=== PATIENT | male | born 1935 | race Caucasian/White ===

== ENCOUNTER 2021-03-15 06:53 | Inpatient (IN) ==
[2021-03-09 11:40] LABS: Basophils # 0.1 10*3/uL (0.0-0.2); Eosinophils # 0.1 10*3/uL (0.0-0.87); Hematocrit 39.9 VOL% (42.0-52.0); Hemoglobin 14.1 GM/DL (14.0-18.0); Immature Granulocytes % 0.5 %; Immature Granulocytes Absolute 0.03 #; Lymphocytes # 2.2 10*3/uL (1.4-4.0); Lymphocytes % 38.4 % (21.2-54.2); Mean Corpuscular HGB Conc 35.3 GM/DL (32-36); Mean Corpuscular Volume 89.5 FL (87-102); Mean Platelet Volume 11.2 FL (9.6-12.0); Monocytes % 8.5 % (1.7-12.7); Neutrophils % 48.6 % (38.7-73.9); Platelet Count 226 T/CUMM (130-400); Red Blood Count 4.46 MC/CUMM (3.8-5.5); Red Cell Distribution Width 13.8 % (9.3-17.3); White Blood Count 5.6 T/CUMM (4-12)
[2021-03-09 11:49] LABS: PT Patient Result 11.2 SECS (10.5-12.0)
[2021-03-09 11:57] LABS: Albumin 3.5 G/DL (3.4-5.0); Bilirubin,Total 0.9 MG/DL (0.2-1.0); Calcium 9.4 MG/DL (8.5-10.1); Osmolality,Calculated 278.5 MOS/KG (273-304); Potassium 4.3 MMOL/L (3.5-5.1); Total Protein 6.5 G/DL (6.4-8.2)
[~2021-03-15 06:53] MED LIST: LACTATED RINGERS 1,000 ML IV SCH; VANCOMYCIN INJ 500 MG in SODIUM CHLORIDE 0.9% 100 ML IV ONE
[2021-03-15] MEDS ORDERED: HEPARIN 5,000 UNIT/1 ML VIAL ONE (07:14)
[2021-03-15] MEDS ORDERED: LIDOCAINE 1% 20 ML VIAL ONE (07:14)
[2021-03-15] MEDS ORDERED: fentaNYL 100 MCG/2 ML VIAL ONE (07:22)
[2021-03-15] MEDS ORDERED: HEPARIN/NACL 0.9% 2 UNITS/ML 1,000 UNIT/500 ML BAG IV ONE (07:24)
[2021-03-15] MEDS ORDERED: NITROGLYCERIN DRIP 50 MG/250 ML BOTTLE IV ONE (07:24)
[2021-03-15] MEDS ORDERED: PHENYLEPHRINE DRIP 20 MG/250 ML PREMIX IV ONE (07:25)
[2021-03-15] MEDS ORDERED: PHENYLEPHRINE 1 MG/10 ML SYRINGE IV ONE (07:25)
[2021-03-15] MEDS ORDERED: PROTAMINE SULFATE 50 MG/5 ML VIAL IV ONE (07:25)
[2021-03-15] MEDS ORDERED: HEPARIN 10,000 UNIT/10 ML VIAL ONE (07:25)
[2021-03-15] MEDS ORDERED: ePHEDrine 50 MG/ML VIAL ONE (07:38)
[2021-03-15] MEDS ORDERED: LIDOCAINE 2% 5 ML VIAL ONE ×2 (07:47→07:48)
[2021-03-15] MEDS ORDERED: ROCURONIUM 50 MG/5 ML VIAL IV ONE (07:48)
[2021-03-15] MEDS ORDERED: propofoL 200 MG/20 ML VIAL IV ONE (07:48)
[2021-03-15] MEDS ORDERED: ESMOLOL 100 MG/10 ML VIAL IV ONE (09:07)
[2021-03-15] MEDS ORDERED: HYDROmorphone 2 MG/1 ML VIAL IV PRN (09:47)
[2021-03-15] MEDS ORDERED: DEXTROSE 50% 25 GM/50 ML VIAL IV PRN (09:47)
[2021-03-15] MEDS ORDERED: NALOXONE 0.4 MG/ML VIAL IV PRN (09:47)
[2021-03-15] MEDS ORDERED: GLUCAGON 1 MG VIAL IM PRN (09:47)
[2021-03-15] MEDS ORDERED: oxyCODONE/ACETAMINOPHEN 5-325 MG TABLET PO PRN ×2 (09:47)
[2021-03-15] MEDS ORDERED: PROMETHAZINE 25 MG/1 ML VIAL IM PRN (09:47)
[2021-03-15] MEDS ORDERED: ONDANSETRON 4 MG/2 ML VIAL IV PRN (09:47)
[2021-03-15] MEDS ORDERED: ONDANSETRON 4 MG/2 ML VIAL ONE (09:50)
[2021-03-15] MEDS ORDERED: SEVOFLURANE 1 UNIT/15 MINUTE INH ONE (09:56)
[2021-03-15] MEDS ORDERED: PHENYLEPHRINE DRIP 40 MG/250 ML PREMIX IV SCH (10:00)
[2021-03-15] MEDS: NITROPRUSSIDE 100 MG in DEXTROSE 5% 250 ML IV SCH (10:45)
[2021-03-15] MEDS: LACTATED RINGERS 1,000 ML IV SCH (10:45)
[2021-03-15] MEDS: HYDROmorphone 2 MG/1 ML VIAL IV PRN ×2 (11:27→14:20)
[2021-03-15] MEDS ORDERED: PHENYLEPHRINE DRIP 40 MG/250 ML PREMIX IV PRN (14:00)
[2021-03-15] MEDS ORDERED: KETOROLAC 15 MG/1 ML VIAL IV PRN (17:19)
[2021-03-15] MEDS: DOCUSATE SODIUM 100 MG CAPSULE PO SCH (21:05)
[2021-03-16] MEDS: LACTATED RINGERS 1,000 ML IV SCH ×2 (00:01→08:07)
[2021-03-16] MEDS ORDERED: SEVOFLURANE 1 UNIT/15 MINUTE INH ONE ×4 (08:04→08:05)
[2021-03-16] MEDS ORDERED: PHENYLEPHRINE 1 MG/10 ML SYRINGE IV ONE (08:05)
[2021-03-16] MEDS ORDERED: PROTAMINE SULFATE 50 MG/5 ML VIAL IV ONE (08:05)
[2021-03-16] MEDS ORDERED: PHENYLEPHRINE DRIP 20 MG/250 ML PREMIX IV ONE (08:07)
[2021-03-16] MEDS ORDERED: DEXTROSE 50% 25 GM/50 ML VIAL IV PRN (08:20)
[2021-03-16] MEDS ORDERED: GLUCAGON 1 MG VIAL IM PRN (08:20)
[2021-03-16] MEDS ORDERED: ASPIRIN EC 81 MG TABLET PO SCH (09:00)
[2021-03-16] MEDS: LEVOTHYROXINE 125 MCG TABLET PO SCH (09:22)
[2021-03-16] MEDS: POLYETHYLENE GLYCOL POWDER 17 GM PACK PO SCH (09:22)
[2021-03-16] MEDS: ASPIRIN EC 81 MG TABLET PO SCH (09:22)
[2021-03-16] MEDS: NITROPRUSSIDE 100 MG in DEXTROSE 5% 250 ML IV SCH (09:23)
[2021-03-16] MEDS ORDERED: PHENOL 1.4% THROAT SPRAY 177 ML BOTTLE PO PRN (12:50)
[2021-03-16] MEDS ORDERED: DEXAMETHASONE INJ 20 MG in SODIUM CHLORIDE 0.9% 50 ML IV ONE (14:00)
[2021-03-16] MEDS: INSULIN LISPRO 100 UNIT/ML SUBCUT SCH (18:35)
[2021-03-16] MEDS ORDERED: METOPROLOL TARTRATE 5 MG/5 ML VIAL IV PRN (18:52)
[2021-03-16] MEDS: DOCUSATE SODIUM 100 MG CAPSULE PO SCH (20:52)
[2021-03-17] MEDS: INSULIN LISPRO 100 UNIT/ML SUBCUT SCH ×5 (00:32→17:59)
[2021-03-17] MEDS: METOPROLOL SUCCINATE XL 25 MG TABLET PO SCH (09:16)
[2021-03-17] MEDS: POLYETHYLENE GLYCOL POWDER 17 GM PACK PO SCH (09:16)
[2021-03-17] MEDS: ASPIRIN EC 81 MG TABLET PO SCH (09:16)
[2021-03-17] MEDS: LEVOTHYROXINE 125 MCG TABLET PO SCH (09:16)
[2021-03-17] MEDS: NITROPRUSSIDE 100 MG in DEXTROSE 5% 250 ML IV SCH (10:06)
[2021-03-17] MEDS ORDERED: chlorproMAZINE 25 MG TABLET PO PRN (18:01)
[2021-03-17] MEDS: DOCUSATE SODIUM 100 MG CAPSULE PO SCH (20:40)
[2021-03-18] MEDS: INSULIN LISPRO 100 UNIT/ML SUBCUT SCH ×3 (00:20→07:51)
[2021-03-18] MEDS ORDERED: INSULIN GLARGINE 100 UNIT/ML SUBCUT SCH (09:00)
[2021-03-18] MEDS: ASPIRIN EC 81 MG TABLET PO SCH (09:05)
[2021-03-18] MEDS: LEVOTHYROXINE 125 MCG TABLET PO SCH (09:05)
[2021-03-18] MEDS: METOPROLOL SUCCINATE XL 25 MG TABLET PO SCH (09:05)
[2021-03-18] MEDS: POLYETHYLENE GLYCOL POWDER 17 GM PACK PO SCH (09:08)
[2021-03-18 11:30] VITALS: BP 139/54
== END 2021-03-18 11:59 | DRG 38 ==
LOC: N.OR 06:53 → N.SDSINP 06:57 → EDSTATUS 08:15 → N.SDSINP 09:47 → N.ICU 10:35 → N.3E 03-17 12:42
PROVIDERS: ADMIT Surgery; ATTEND Surgery

== ENCOUNTER 2021-08-07 16:50 | Observation (INO) ==
[2021-08-07 18:03] LABS: Basophils # 0.1 10*3/uL (0.0-0.2); Basophils % 1.8 % (0.0-0.8); Eosinophils # 0.1 10*3/uL (0.0-0.87); Eosinophils % 2.2 % (0.00-10.9); Hematocrit 39.6 VOL% (42.0-52.0); Hemoglobin 13.6 GM/DL (14.0-18.0); Immature Granulocytes % 0.4 %; Immature Granulocytes Absolute 0.02 #; Lymphocytes # 2.2 10*3/uL (1.4-4.0); Lymphocytes % 39.3 % (21.2-54.2); Mean Corpuscular HGB Conc 34.3 GM/DL (32-36); Mean Platelet Volume 10.4 FL (9.6-12.0); Monocytes % 9.4 % (1.7-12.7); Neutrophils % 46.9 % (38.7-73.9); Platelet Count 237 T/CUMM (130-400); Red Cell Distribution Width 14.6 % (9.3-17.3); White Blood Count 5.5 T/CUMM (4-12)
[2021-08-07] MEDS ORDERED: ONDANSETRON 4 MG/2 ML VIAL IV STA (18:26)
[2021-08-07] MEDS ORDERED: ASPIRIN 325 MG TABLET PO STA (18:26)
[2021-08-07 18:35] LABS: Albumin 3.7 G/DL (3.4-5.0); Bilirubin,Total 0.7 MG/DL (0.20-1.00); Calcium 9.1 MG/DL (8.5-10.1); Osmolality,Calculated 277.8 MOS/KG (273-304); Potassium 4.2 MMOL/L (3.5-5.1); Total Protein 7.2 G/DL (6.4-8.2)
[2021-08-07 18:40] LABS: PT Patient Result 11.6 SECS (10.5-12.0); Partial Thromboplastin Time 25.1 SECS (23.8-32.1)
[2021-08-07 18:42] LABS: High Sensitive Troponin I* 310.5 ng/L (0-78)
[2021-08-07] MEDS ORDERED: GLUCAGON 1 MG VIAL IM PRN ×2 (19:14)
[2021-08-07] MEDS ORDERED: ACETAMINOPHEN 325 MG TABLET PO PRN (19:14)
[2021-08-07] MEDS ORDERED: DEXTROSE 50% 25 GM/50 ML VIAL IV PRN ×2 (19:14)
[2021-08-07 19:16] LABS: Bilirubin,Urine Negative (Negative); Blood, Urine Negative (Negative); Glucose,Urine (UA) >=500 mg/dL (Negative); Hyaline Casts,Urine 1 /LPF (0-3); Ketones,Urine Negative (Negative); Mucus,Urine Occasional /LPF (Occasional); Nitrite,Urine Negative (Negative); Protein,Urine Negative; RBC,Urine 1 /HPF (0-4); Urine Appearance CLEAR (Clear); Urine Color Yellow (Yellow); Urine Specific Gravity 1.015 (1.001-1.035); Urine Urobilinogen < 2.0 EU/DL (0.2-1.0)
[2021-08-07 19:22] LABS: Barbiturates Screen,Urine Negative (Negative); Benzodiazepines Screen,Urine Negative (Negative); Cannabinoid Screen,Urine Negative (Negative); Opiate Screen,Urine Negative (Negative); Phencyclidine Screen,Urine Negative (Negative)
[2021-08-07] MEDS ORDERED: ENOXAPARIN 40 MG/0.4 ML SYRINGE SUBCUT SCH (19:30)
[2021-08-07] MEDS: INSULIN LISPRO 100 UNIT/ML SUBCUT SCH ×2 (21:45)
[2021-08-07 21:56] LABS: INR 1.1; PT Patient Result 11.8 SECS (10.5-12.0); Partial Thromboplastin Time 25.6 SECS (23.8-32.1)
[2021-08-08 06:28] LABS: Basophils # 0.1 10*3/uL (0.0-0.2); Basophils % 1.6 % (0.0-0.8); Eosinophils # 0.1 10*3/uL (0.0-0.87); Hematocrit 38.2 VOL% (42.0-52.0); Hemoglobin 13.2 GM/DL (14.0-18.0); Immature Granulocytes % 0.5 %; Immature Granulocytes Absolute 0.03 #; Lymphocytes # 1.4 10*3/uL (1.4-4.0); Lymphocytes % 24.7 % (21.2-54.2); Mean Corpuscular HGB Conc 34.6 GM/DL (32-36); Mean Corpuscular Volume 90.7 FL (87-102); Mean Platelet Volume 10.8 FL (9.6-12.0); Neutrophils % 62.2 % (38.7-73.9); Platelet Count 209 T/CUMM (130-400); Red Blood Count 4.21 MC/CUMM (3.8-5.5); Red Cell Distribution Width 14.5 % (9.3-17.3); White Blood Count 5.6 T/CUMM (4-12)
[2021-08-08] MEDS ORDERED: LEVOTHYROXINE 125 MCG TABLET PO SCH (06:30)
[2021-08-08 06:59] LABS: Thyroid Stimulating Hormone 4.78 uIU/ml (0.358-3.74)
[2021-08-08 07:48] LABS: Free T4 (Free Thyroxine) 0.93 NG/DL (0.76-1.46)
[2021-08-08 08:45] LABS: Folate > 24.00 NG/ML (5.38-24.0); Vitamin B12 522 PG/ML (211-911)
[2021-08-08] MEDS ORDERED: INSULIN GLARGINE 100 UNIT/ML SUBCUT SCH (09:00)
[2021-08-08] MEDS: INSULIN LISPRO 100 UNIT/ML SUBCUT SCH ×5 (09:43→21:19)
[2021-08-08] MEDS: PANTOPRAZOLE 40 MG TABLET PO SCH (09:45)
[2021-08-08] MEDS: ASPIRIN EC 81 MG TABLET PO SCH (09:45)
[2021-08-08] MEDS: CLOPIDOGREL 75 MG TABLET PO SCH (09:45)
[2021-08-08] MEDS ORDERED: GLUCAGON 1 MG VIAL IM PRN (11:24)
[2021-08-08] MEDS ORDERED: DEXTROSE 50% 25 GM/50 ML VIAL IV PRN (11:24)
[2021-08-08] MEDS ORDERED: POLYETHYLENE GLYCOL POWDER 17 GM PACK PO ONE (14:50)
[2021-08-08] MEDS ORDERED: EZETIMIBE 10 MG TABLET PO SCH (21:00)
[2021-08-09 05:10] LABS: Basophils # 0.1 10*3/uL (0.0-0.2); Basophils % 1.6 % (0.0-0.8); Eosinophils # 0.1 10*3/uL (0.0-0.87); Eosinophils % 2.5 % (0.00-10.9); Hematocrit 36.9 VOL% (42.0-52.0); Hemoglobin 12.4 GM/DL (14.0-18.0); Immature Granulocytes % 0.4 %; Immature Granulocytes Absolute 0.02 #; Lymphocytes % 35.9 % (21.2-54.2); Mean Corpuscular HGB Conc 33.6 GM/DL (32-36); Mean Corpuscular Volume 91.1 FL (87-102); Mean Platelet Volume 10.7 FL (9.6-12.0); Monocytes % 11.1 % (1.7-12.7); Neutrophils % 48.5 % (38.7-73.9); Platelet Count 202 T/CUMM (130-400); Red Blood Count 4.05 MC/CUMM (3.8-5.5); Red Cell Distribution Width 14.5 % (9.3-17.3); White Blood Count 5.6 T/CUMM (4-12)
[2021-08-09 05:32] LABS: Risk Ratio 2.72; VLDL Cholesterol 21.6 MG/DL
[2021-08-09 05:35] LABS: Calcium 9.1 MG/DL (8.5-10.1)
[2021-08-09 05:36] LABS: Potassium 3.9 MMOL/L (3.5-5.1)
[2021-08-09] MEDS ORDERED: LEVOTHYROXINE 112 MCG TABLET PO SCH (06:30)
[2021-08-09] MEDS: PANTOPRAZOLE 40 MG TABLET PO SCH (08:51)
[2021-08-09] MEDS: CLOPIDOGREL 75 MG TABLET PO SCH (08:51)
[2021-08-09] MEDS: INSULIN LISPRO 100 UNIT/ML SUBCUT SCH ×3 (08:52→15:58)
[2021-08-09] MEDS: ASPIRIN EC 81 MG TABLET PO SCH (08:52)
[2021-08-09] MEDS ORDERED: INSULIN GLARGINE 100 UNIT/ML SUBCUT SCH ×3 (09:00→21:00)
[2021-08-09] MEDS ORDERED: POLYETHYLENE GLYCOL POWDER 17 GM PACK PO SCH (09:00)
[2021-08-09 15:42] VITALS: BP 106/82
== END 2021-08-09 18:17 | disposition home health service (06) ==
LOC: N.EDINP 16:50 → N.ED 16:50 → N.EDINP 22:20 → N.TELES 22:30
PROVIDERS: ADMIT Internal Medicine; ATTEND Internal Medicine

== ENCOUNTER 2021-08-24 16:11 | Observation (INO) ==
[2021-08-24] MEDS ORDERED: ONDANSETRON 4 MG/2 ML VIAL IV STA (16:48)
[2021-08-24] MEDS ORDERED: SODIUM CHLORIDE 0.9% 500 ML IV ONE (16:48)
[2021-08-24] MEDS ORDERED: fentaNYL 100 MCG/2 ML VIAL IV STA (16:49)
[2021-08-24 17:13] LABS: Basophils # 0.1 10*3/uL (0.0-0.2); Basophils % 0.7 % (0.0-0.8); Eosinophils # 0.1 10*3/uL (0.0-0.87); Eosinophils % 1.4 % (0.00-10.9); Hematocrit 39.9 VOL% (42.0-52.0); Hemoglobin 13.6 GM/DL (14.0-18.0); Immature Granulocytes % 0.8 %; Immature Granulocytes Absolute 0.08 #; Lymphocytes # 2.2 10*3/uL (1.4-4.0); Lymphocytes % 22.1 % (21.2-54.2); Mean Corpuscular HGB Conc 34.1 GM/DL (32-36); Mean Corpuscular Volume 89.9 FL (87-102); Mean Platelet Volume 10.6 FL (9.6-12.0); Monocytes % 7.3 % (1.7-12.7); Neutrophils % 67.7 % (38.7-73.9); Platelet Count 243 T/CUMM (130-400); Red Blood Count 4.44 MC/CUMM (3.8-5.5); Red Cell Distribution Width 14.2 % (9.3-17.3); White Blood Count 9.8 T/CUMM (4-12)
[2021-08-24 18:16] LABS: Sedimentation Rate-Westergren 29 MM/HR (0-20)
[2021-08-24 18:18] LABS: Calcium 9.6 MG/DL (8.5-10.1); Osmolality,Calculated 274.2 MOS/KG (273-304); Potassium 4.1 MMOL/L (3.5-5.1)
[2021-08-24] MEDS ORDERED: METOPROLOL TARTRATE 5 MG/5 ML VIAL IV STA (19:15)
[2021-08-24] MEDS ORDERED: DILTIAZEM 50 MG/10 ML VIAL IV STA (21:08)
[2021-08-24] MEDS ORDERED: DILTIAZEM 25 MG/5 ML VIAL IV ONE (21:19)
[2021-08-24] MEDS: DOXYCYCLINE HYCLATE INJ 100 MG in SODIUM CHLORIDE 0.9% 100 ML IV SCH (21:43)
[2021-08-24] MEDS ORDERED: GLUCAGON 1 MG VIAL IM PRN (21:48)
[2021-08-24] MEDS ORDERED: DEXTROSE 50% 25 GM/50 ML VIAL IV PRN (21:48)
[2021-08-24] MEDS ORDERED: ONDANSETRON 4 MG/2 ML VIAL IV PRN (21:55)
[2021-08-24] MEDS ORDERED: HYDROmorphone 2 MG/1 ML VIAL IV PRN (21:55)
[2021-08-24] MEDS ORDERED: ACETAMINOPHEN 325 MG TABLET PO PRN (21:55)
[2021-08-24] MEDS ORDERED: traMADol 50 MG TABLET PO PRN (22:05)
[2021-08-24] MEDS ORDERED: METOPROLOL TARTRATE 5 MG/5 ML VIAL IV PRN (22:51)
[2021-08-24] MEDS ORDERED: hydrALAZINE 20 MG/1 ML VIAL IV PRN (23:00)
[2021-08-25] MEDS: ALBUTEROL/IPRATROPIUM 3 ML NEB RESP TX SCH ×4 (03:00→20:24)
[2021-08-25 05:47] LABS: Basophils # 0.1 10*3/uL (0.0-0.2); Basophils % 0.9 % (0.0-0.8); Eosinophils # 0.1 10*3/uL (0.0-0.87); Eosinophils % 1.3 % (0.00-10.9); Hematocrit 35.2 VOL% (42.0-52.0); Hemoglobin 11.9 GM/DL (14.0-18.0); Immature Granulocytes % 0.5 %; Immature Granulocytes Absolute 0.04 #; Lymphocytes # 2.3 10*3/uL (1.4-4.0); Lymphocytes % 29.4 % (21.2-54.2); Mean Corpuscular HGB Conc 33.8 GM/DL (32-36); Mean Corpuscular Volume 90.7 FL (87-102); Mean Platelet Volume 11.1 FL (9.6-12.0); Monocytes % 9.7 % (1.7-12.7); Neutrophils % 58.2 % (38.7-73.9); Platelet Count 197 T/CUMM (130-400); Red Blood Count 3.88 MC/CUMM (3.8-5.5); Red Cell Distribution Width 14.4 % (9.3-17.3)
[2021-08-25 06:11] LABS: Albumin 3.1 G/DL (3.4-5.0); Bilirubin,Total 1.4 MG/DL (0.20-1.00); Calcium 9.2 MG/DL (8.5-10.1); Osmolality,Calculated 276.2 MOS/KG (273-304); Potassium 4.8 MMOL/L (3.5-5.1); Total Protein 6.4 G/DL (6.4-8.2)
[2021-08-25 06:13] LABS: Atypical Lymphocytes Few
[2021-08-25] MEDS: ASPIRIN EC 81 MG TABLET PO SCH (09:20)
[2021-08-25] MEDS: LEVOTHYROXINE 112 MCG TABLET PO SCH (09:20)
[2021-08-25] MEDS: CHOLECALCIFEROL 1,000 UNIT TABLET PO SCH (09:20)
[2021-08-25] MEDS: APIXABAN 2.5 MG TABLET PO SCH ×2 (09:20→21:14)
[2021-08-25] MEDS: POLYETHYLENE GLYCOL POWDER 17 GM PACK PO SCH (09:20)
[2021-08-25] MEDS: METOPROLOL TARTRATE 25 MG TABLET PO SCH ×2 (09:20→21:14)
[2021-08-25] MEDS: DULoxetine 20 MG CAPSULE PO SCH (09:23)
[2021-08-25] MEDS: DOXYCYCLINE HYCLATE INJ 100 MG in SODIUM CHLORIDE 0.9% 100 ML IV SCH ×2 (11:27→21:17)
[2021-08-25] MEDS: INSULIN REGULAR 100 UNIT/ML SUBCUT SCH ×4 (11:28→21:07)
[2021-08-25] MEDS ORDERED: DOCUSATE SODIUM 100 MG CAPSULE PO SCH (21:00)
[2021-08-26] MEDS: ALBUTEROL/IPRATROPIUM 3 ML NEB RESP TX SCH ×3 (01:28→12:25)
[2021-08-26 08:23] LABS: Basophils # 0.1 10*3/uL (0.0-0.2); Eosinophils # 0.1 10*3/uL (0.0-0.87); Eosinophils % 1.9 % (0.00-10.9); Hematocrit 35.9 VOL% (42.0-52.0); Hemoglobin 12.1 GM/DL (14.0-18.0); Immature Granulocytes % 0.3 %; Immature Granulocytes Absolute 0.02 #; Lymphocytes % 31.3 % (21.2-54.2); Mean Corpuscular HGB Conc 33.7 GM/DL (32-36); Mean Corpuscular Volume 89.8 FL (87-102); Mean Platelet Volume 10.7 FL (9.6-12.0); Monocytes % 8.1 % (1.7-12.7); Neutrophils % 57.4 % (38.7-73.9); Platelet Count 213 T/CUMM (130-400); White Blood Count 6.3 T/CUMM (4-12)
[2021-08-26 08:37] LABS: Calcium 8.9 MG/DL (8.5-10.1); Osmolality,Calculated 280.2 MOS/KG (273-304); Potassium 4.5 MMOL/L (3.5-5.1)
[2021-08-26 08:50] LABS: Anisocytosis 1+; Platelet Estimate Normal
[2021-08-26 08:51] LABS: Misc Morphology 5S
[2021-08-26] MEDS: POLYETHYLENE GLYCOL POWDER 17 GM PACK PO SCH (09:56)
[2021-08-26] MEDS: CHOLECALCIFEROL 1,000 UNIT TABLET PO SCH (09:56)
[2021-08-26] MEDS: LEVOTHYROXINE 112 MCG TABLET PO SCH (09:56)
[2021-08-26] MEDS: ASPIRIN EC 81 MG TABLET PO SCH (09:56)
[2021-08-26] MEDS: DULoxetine 20 MG CAPSULE PO SCH (09:56)
[2021-08-26] MEDS: APIXABAN 2.5 MG TABLET PO SCH (09:56)
[2021-08-26] MEDS: DOXYCYCLINE HYCLATE INJ 100 MG in SODIUM CHLORIDE 0.9% 100 ML IV SCH (09:57)
[2021-08-26] MEDS: INSULIN REGULAR 100 UNIT/ML SUBCUT SCH ×2 (09:58→11:42)
[2021-08-26] MEDS: METOPROLOL TARTRATE 25 MG TABLET PO SCH (11:02)
[2021-08-26 12:01] VITALS: BP 122/71
[2021-08-26] MEDS ORDERED: METOPROLOL TARTRATE 25 MG TABLET PO SCH (21:00)
[2021-08-26] MEDS ORDERED: DOXYCYCLINE HYCLATE 100 MG CAPSULE PO SCH (21:00)
== END 2021-08-26 13:52 | disposition home or self-care (01) ==
LOC: N.ED 16:11 → N.EDINP 16:11 → N.TELES 08-25 00:35
PROVIDERS: ADMIT Internal Medicine; ATTEND Internal Medicine